=== PATIENT | male | born 1960 | race Caucasian/White ===

== ENCOUNTER 2020-06-05 10:59 | Inpatient (IN) | payer BC, MEDICARE ==
[~2020-06-05] VITALS: Ht 172.7 cm; Wt 113.4 kg
[~2020-06-05 10:59] MED LIST: ALBUTEROL0.63 MG/3 INH; ALDACTONE25 MG PO; ALDACTONE50 MG PO; ASMANEX INH; ASPIRIN 325MG325 MG PO; ASPIRIN EC325 MG PO; AVODART 0.5 MG0.5 MG PO; BACTRIM DS TAB1 EACH PO; BACTROBAN OINT22 GM EXT; BUMETANIDE2 MG PO; CARDIZEM CD180 MG PO; CELEXA40 MG PO; CITALOPRAM HBR40 MG PO; CLEOCIN 150MG150 MG PO; CLINDAMYCIN HC300 MG PO; DIAMOX 250 MG250 MG PO; DIFLUCAN200 MG PO; ELIQUIS 5 MG TAB5 MG PO; FERREX 150150 MG PO; FLOMAX 0.4 MG0.4 MG PO; FLOMAX0.4 MG PO; GLUCOPHAGE850 MG PO; GLUCOTROL XL 22.5 MG PO; GLUCOTROL5 MG PO; HYDRALAZINE HCL10 MG PO; HYDRALAZINE HCL50 MG PO; IMDUR ER TAB 6060 MG PO; IPRAT-ALBUT 0.5-3 ML INH; IPRAT-ALBUT 0.5-3 ML NEB; K-DUR TAB 20 M20 MEQ PO; LASIX 40 MG TAB40 MG PO; LASIX20 MG PO; LASIX40 MG PO; LEVAQUIN500 MG PO; LEVAQUIN750 MG PO; LISINOPRIL20 MG PO; MEDROL DOSEPAK 24 MG PO; NASONEX SPRAY 117 GM; NASONEX17 GM; NEXIUM40 MG PO; NITRO-TIME2.5 MG PO; NITROGLYCERIN0.4 MG SL; NITROGLYCERIN2.5 MG PO; NITROSTAT0.4 MG SL; NYSTATIN1000000 UN MC; PERCOCET 10-321 EACH PO; PERCOCET 5-3251 EACH PO; POTASSIUM CHLO20 ME2 PO; PREDNISONE10 MG PO; PRINIVIL20 MG PO; PULMICORT FLE180 MCG INH; PULMICORT FLEX90 MCG INH; RANITIDINE HCL150 MG PO; ROBITUSSIN AC480 ML PO; SALINE NOSE SPR45 ML; SEREVENT DISKU50 MCG INH; SINGULAIR10 MG PO; SPIRONOLACTONE25 MG PO; TRULICITY1.5 MG/0.5 SQ; VENTOLIN HFA 66.7 GM INH
[2020-06-05 11:40] LABS: HEMOGLOBIN 7.6 gm/dl (14.0-17.5); RED BLOOD COUNT 3.31 M/UL (4.20-5.50); WHITE BLOOD COUNT 13.5 K/UL (4.5-11.0)
[2020-06-05 12:36] LABS: BUN/CREATININE RATIO 18 (0-10)
[2020-06-05] MEDS ORDERED: ASPIRIN325 MG PO (17:36)
[2020-06-05] MEDS ORDERED: AVODART0.5 MG PO (17:39)
[2020-06-05] MEDS ORDERED: HYDRALAZINE HCL50 MG PO (17:40)
[2020-06-05] MEDS ORDERED: VENTOLIN HFA 66.7 GM INH (17:44)
[2020-06-05] MEDS ORDERED: IMDUR ER TAB 3030 MG PO (17:45)
[2020-06-05] MEDS ORDERED: ALBUTEROL0.63 MG/3 INH (17:45)
[2020-06-05] MEDS ORDERED: DIAMOX 250 MG250 MG PO (17:46)
[2020-06-05] MEDS ORDERED: CARDIZEM CD180 MG PO (17:46)
[2020-06-05] MEDS ORDERED: BUMETANIDE2 MG PO (17:47)
[2020-06-05] MEDS ORDERED: NEXIUM40 MG PO ×2 (17:48→17:49)
[2020-06-05] MEDS ORDERED: LISINOPRIL20 MG PO (17:49)
[2020-06-05] MEDS ORDERED: ALDACTONE25 MG PO (17:49)
[2020-06-05] MEDS ORDERED: CITALOPRAM HBR40 MG PO (17:50)
[2020-06-05] MEDS ORDERED: ELIQUIS5 MG PO (17:51)
[2020-06-05] MEDS ORDERED: NITROSTAT0.4 MG SL (17:51)
[2020-06-05] MEDS ORDERED: LASIX40 MG PO (17:51)
[2020-06-06 02:11] LABS: HEMOGLOBIN 7.3 gm/dl (14.0-17.5); RED BLOOD COUNT 3.16 M/UL (4.20-5.50); WHITE BLOOD COUNT 11.2 K/UL (4.5-11.0)
[2020-06-06 02:51] LABS: BUN/CREATININE RATIO 15 (0-10)
--- NOTE | 2020-06-06 16:31 | NUR ---
20g x 10cm midline placed in the left basilic vein. Aspirates and flushes well.
[2020-06-06 22:20] LABS: HEMOGLOBIN 9.2 gm/dl (14.0-17.5)
[2020-06-07 04:18] LABS: HEMOGLOBIN 8.8 gm/dl (14.0-17.5); WHITE BLOOD COUNT 11.2 K/UL (4.5-11.0)
[2020-06-07 04:19] LABS: RED BLOOD COUNT 3.66 M/UL (4.20-5.50)
[2020-06-08 06:35] LABS: RED BLOOD COUNT 3.84 M/UL (4.20-5.50); WHITE BLOOD COUNT 10.3 K/UL (4.5-11.0)
[2020-06-09 04:32] LABS: HEMOGLOBIN 8.7 gm/dl (14.0-17.5); RED BLOOD COUNT 3.62 M/UL (4.20-5.50); WHITE BLOOD COUNT 10.9 K/UL (4.5-11.0)
[2020-06-09] MEDS ORDERED: CLINDAMYCIN HC150 MG PO (10:12)
[2020-06-09] MEDS ORDERED: ALDACTONE25 MG PO (10:12)
[2020-06-09] MEDS ORDERED: NIFEREX 150 MG150 MG PO (10:12)
== END 2020-06-09 13:38 | disposition home or self-care (01) | DRG 291 ==
LOC: ER1 10:59 → MED SURG 4 14:37 → CDU 14:37 → MED SURG 4 16:01
PROVIDERS: Family Medicine; Physician Assistant; ADMIT Internal Medicine
PROC: 30233H1 Transfusion of Nonautologous Whole Blood into Peripheral Vein, Percutaneous Approach (ICD-10-PCS; principal; 2020-06-05)
PROC: 30233H1 Transfusion of Nonautologous Whole Blood into Peripheral Vein, Percutaneous Approach (ICD-10-PCS; 2020-06-06)
PROC: 5A09457 Assistance with Respiratory Ventilation, 24-96 Consecutive Hours, Continuous Positive Airway Pressure (ICD-10-PCS; 2020-06-07)
DX: I13.0 Hypertensive heart and chronic kidney disease with heart failure and stage 1 through stage 4 chronic kidney disease, or unspecified chronic kidney disease (principal); I50.43 Acute on chronic combined systolic (congestive) and diastolic (congestive) heart failure; J96.22 Acute and chronic respiratory failure with hypercapnia; J96.21 Acute and chronic respiratory failure with hypoxia; E66.2 Morbid (severe) obesity with alveolar hypoventilation; I48.20 Chronic atrial fibrillation, unspecified; L02.211 Cutaneous abscess of abdominal wall; K92.2 Gastrointestinal hemorrhage, unspecified; E11.22 Type 2 diabetes mellitus with diabetic chronic kidney disease; N18.30 Chronic kidney disease, stage 3 unspecified; D64.89 Other specified anemias; I27.20 Pulmonary hypertension, unspecified; I25.10 Atherosclerotic heart disease of native coronary artery without angina pectoris; E78.5 Hyperlipidemia, unspecified; Z79.01 Long term (current) use of anticoagulants; J44.9 Chronic obstructive pulmonary disease, unspecified; Z66 Do not resuscitate; I34.0 Nonrheumatic mitral (valve) insufficiency; Z98.61 Coronary angioplasty status; Z99.81 Dependence on supplemental oxygen; Z79.82 Long term (current) use of aspirin; Z79.899 Other long term (current) drug therapy; B95.62 Methicillin resistant Staphylococcus aureus infection as the cause of diseases classified elsewhere; D50.9 Iron deficiency anemia, unspecified; E65 Localized adiposity; Z20.822 Contact with and (suspected) exposure to COVID-19; Z68.38 Body mass index [BMI] 38.0-38.9, adult
CPT/HCPCS: ECHO; 36415; 36430; 36600; 71045; 80048; 80053; 82272; 82550; 82553; 82607; 82728; 82746; 82803; 82962; 83540; 83550; 83605; 83874; 83880; 84132; 84484; 85014; 85018; 85025; 85027; 86850; 86900; 86901; 86920; 93005; 93306; 94640; 94660; 94664; 94760; 96372; 96374; 96375; 99285; C1751; J1756; J1940; P9016; U0002

== ENCOUNTER → 2020-07-27 | Outpatient (CLI) | payer BC, MEDICARE ==
[~2020-07-27] MED LIST changes: +ASPIRIN325 MG PO; +AVODART0.5 MG PO; +CLINDAMYCIN HC150 MG PO; +COLACE100 MG PO; +ELIQUIS5 MG PO; +IMDUR ER TAB 3030 MG PO; +NIFEREX 150 MG150 MG PO; +NITROSTAT 0.40.4 MG SL; +OXYCODONE-ACET1 EACH PO; +SILDENAFIL20 MG PO
== END ==
LOC: LBRF 18:50
PROVIDERS: Internal Medicine
DX: I13.0 Hypertensive heart and chronic kidney disease with heart failure and stage 1 through stage 4 chronic kidney disease, or unspecified chronic kidney disease (principal); N18.30 Chronic kidney disease, stage 3 unspecified
CPT/HCPCS: 80048

== ENCOUNTER 2020-07-31 17:17 | Inpatient (IN) | payer BC, MEDICARE ==
[~2020-07-31] VITALS: Ht 172.7 cm; Wt 158.4 kg
[~2020-07-31 17:17] MED LIST changes: -COLACE100 MG PO; -NITROSTAT 0.40.4 MG SL; -OXYCODONE-ACET1 EACH PO; -SILDENAFIL20 MG PO
[2020-07-31 18:03] LABS: HEMOGLOBIN 7.6 gm/dl (14.0-17.5); RED BLOOD COUNT 3.21 M/UL (4.20-5.50); WHITE BLOOD COUNT 10.3 K/UL (4.5-11.0)
[2020-07-31 18:26] LABS: BUN/CREATININE RATIO 16 (0-10)
[2020-08-01 10:34] LABS: HEMOGLOBIN 7.4 gm/dl (14.0-17.5); RED BLOOD COUNT 3.15 M/UL (4.20-5.50); WHITE BLOOD COUNT 10.2 K/UL (4.5-11.0)
[2020-08-01] MEDS ORDERED: LASIX40 MG PO (13:06)
--- NOTE | 2020-08-01 17:25 | NUR ---
BLOOD TO BE GIVEN TO PT,1629 LAB CALLED AND LET NURSE KNOW THAT BLOOD WAS READY,PTS HERE PT WANTED TO WAIT UNTIL HIS Gave KIRBY A SHOWER, ONCE PT COMPLETED SHOWER WENT TO GET BLOOD CONSENT SIGNED AND PTS IV TO LEFT UPPER SHOULDER NO LONGER WORKING, PT A VERY HARD STICK STATES THAT HE WAS STUCK NUMEROUS TIMES BEFORE THEY GOT THAT ONE,NO RESOURCE NURSE TODAY, CALLED [employer] SHE STATED TO CALL [facility] SEE IF SOMEONE WAS AVAILABLE TO COME AND DO AN ULTRASOUND GUIDED IV, SPOKE WITH ROSAS AND SHE ASKED NURSES THAT WAS PRESENT AND NOONE WAS AVAILABLE
[2020-08-01] MEDS ORDERED: OXYCODONE-ACET1 EACH PO (17:42)
[2020-08-01] MEDS ORDERED: NASONEX SPRAY 117 GM (17:43)
[2020-08-01] MEDS ORDERED: TRULICITY1.5 MG/0.5 SQ (17:48)
[2020-08-02 04:44] LABS: HEMOGLOBIN 8.7 gm/dl (14.0-17.5); WHITE BLOOD COUNT 9.5 K/UL (4.5-11.0)
[2020-08-02 04:53] LABS: RED BLOOD COUNT 3.57 M/UL (4.20-5.50)
[2020-08-03 02:49] LABS: HEMOGLOBIN 8.6 gm/dl (14.0-17.5); RED BLOOD COUNT 3.53 M/UL (4.20-5.50)
[2020-08-04 03:57] LABS: HEMOGLOBIN 8.6 gm/dl (14.0-17.5); RED BLOOD COUNT 3.54 M/UL (4.20-5.50); WHITE BLOOD COUNT 9.1 K/UL (4.5-11.0)
[2020-08-05 03:54] LABS: HEMOGLOBIN 8.8 gm/dl (14.0-17.5); RED BLOOD COUNT 3.66 M/UL (4.20-5.50); WHITE BLOOD COUNT 9.2 K/UL (4.5-11.0)
[2020-08-06 05:12] LABS: HEMOGLOBIN 8.7 gm/dl (14.0-17.5); RED BLOOD COUNT 3.59 M/UL (4.20-5.50); WHITE BLOOD COUNT 9.3 K/UL (4.5-11.0)
[2020-08-08 03:13] LABS: HEMOGLOBIN 9.4 gm/dl (14.0-17.5); RED BLOOD COUNT 3.91 M/UL (4.20-5.50); WHITE BLOOD COUNT 9.4 K/UL (4.5-11.0)
[2020-08-09 02:48] LABS: HEMOGLOBIN 8.9 gm/dl (14.0-17.5); RED BLOOD COUNT 3.74 M/UL (4.20-5.50); WHITE BLOOD COUNT 8.4 K/UL (4.5-11.0)
[2020-08-09] MEDS ORDERED: SILDENAFIL20 MG PO (09:55)
--- NOTE | 2020-08-09 12:58 | NUR ---
INSTRUCTED DO NOT TAKE SILDENAFIL WITH NITRO OR IMDUR. VERBALIZED UNDERSTANDING. TROY CARRILLO R.N
== END 2020-08-09 18:19 | disposition home or self-care (01) | DRG 811 ==
LOC: ER1 17:17 → CDU 18:52 → M/S 19:59
PROVIDERS: Emergency Medicine; Internal Medicine Gastroenterology; Internal Medicine Infectious Disease; ADMIT Internal Medicine
PROC: 30233N1 Transfusion of Nonautologous Red Blood Cells into Peripheral Vein, Percutaneous Approach (ICD-10-PCS; 2020-08-01)
PROC: 0DB68ZX Excision of Stomach, Via Natural or Artificial Opening Endoscopic, Diagnostic (ICD-10-PCS; 2020-08-08)
PROC: 0DBK8ZZ Excision of Ascending Colon, Via Natural or Artificial Opening Endoscopic (ICD-10-PCS; principal; 2020-08-08 07:30)
PROC: 0DB98ZX Excision of Duodenum, Via Natural or Artificial Opening Endoscopic, Diagnostic (ICD-10-PCS; 2020-08-08 07:30)
DX: D50.9 Iron deficiency anemia, unspecified (principal); I50.33 Acute on chronic diastolic (congestive) heart failure; J96.21 Acute and chronic respiratory failure with hypoxia; J96.22 Acute and chronic respiratory failure with hypercapnia; K29.01 Acute gastritis with bleeding; I13.0 Hypertensive heart and chronic kidney disease with heart failure and stage 1 through stage 4 chronic kidney disease, or unspecified chronic kidney disease; I48.20 Chronic atrial fibrillation, unspecified; J44.9 Chronic obstructive pulmonary disease, unspecified; I25.10 Atherosclerotic heart disease of native coronary artery without angina pectoris; G47.33 Obstructive sleep apnea (adult) (pediatric); E66.01 Morbid (severe) obesity due to excess calories; E78.5 Hyperlipidemia, unspecified; I27.20 Pulmonary hypertension, unspecified; Z66 Do not resuscitate; E11.22 Type 2 diabetes mellitus with diabetic chronic kidney disease; E87.6 Hypokalemia; K64.8 Other hemorrhoids; N18.30 Chronic kidney disease, stage 3 unspecified; I48.91 Unspecified atrial fibrillation; K63.5 Polyp of colon; K57.30 Diverticulosis of large intestine without perforation or abscess without bleeding; Z79.82 Long term (current) use of aspirin; Z79.01 Long term (current) use of anticoagulants; Z79.899 Other long term (current) drug therapy
CPT/HCPCS: 36415; 36430; 71045; 80048; 80053; 82550; 82553; 82962; 83735; 83874; 83880; 84132; 84484; 85025; 85027; 86850; 86900; 86901; 86920; 87635; 93005; 94640; 94660; 94664; 94760; 96372; 96374; 96375; 99285; J1940; J2250; J2704; J3480; J7040; P9016; U0002

== ENCOUNTER 2020-10-11 21:55 | Inpatient (IN) | payer BC, MEDICARE ==
[~2020-10-11] VITALS: Ht 172.7 cm; Wt 172.9 kg
[~2020-10-11 21:55] MED LIST changes: +OXYCODONE-ACET1 EACH PO; +SILDENAFIL20 MG PO
[2020-10-11 23:15] LABS: RED BLOOD COUNT 2.41 M/UL (4.20-5.50); WHITE BLOOD COUNT 12.4 K/UL (4.5-11.0)
[2020-10-11 23:25] LABS: HEMOGLOBIN 4.6 gm/dl (14.0-17.5)
[2020-10-12] MEDS ORDERED: COLACE100 MG PO (07:16)
[2020-10-12] MEDS ORDERED: NITROSTAT 0.40.4 MG SL (07:21)
[2020-10-12] MEDS ORDERED: ASPIRIN EC325 MG PO (12:57)
[2020-10-12] MEDS ORDERED: SINGULAIR10 MG PO (17:41)
[2020-10-13 02:48] LABS: HEMOGLOBIN 7.8 gm/dl (14.0-17.5); WHITE BLOOD COUNT 9.9 K/UL (4.5-11.0)
[2020-10-13 02:50] LABS: RED BLOOD COUNT 3.44 M/UL (4.20-5.50)
--- NOTE | 2020-10-13 14:00 | NUR ---
NO CHANGE FROM PREVIOUS ASSESSMENT
[2020-10-14 02:33] LABS: HEMOGLOBIN 7.7 gm/dl (14.0-17.5); RED BLOOD COUNT 3.39 M/UL (4.20-5.50); WHITE BLOOD COUNT 11.8 K/UL (4.5-11.0)
[2020-10-15 02:22] LABS: HEMOGLOBIN 7.3 gm/dl (14.0-17.5); RED BLOOD COUNT 3.22 M/UL (4.20-5.50); WHITE BLOOD COUNT 10.4 K/UL (4.5-11.0)
[2020-10-16 05:47] LABS: RED BLOOD COUNT 3.47 M/UL (4.20-5.50); WHITE BLOOD COUNT 9.4 K/UL (4.5-11.0)
[2020-10-16 11:44] LABS: HEMOGLOBIN 8.4 gm/dl (14.0-17.5)
[2020-10-17 00:54] LABS: HEMOGLOBIN 8.4 gm/dl (14.0-17.5)
[2020-10-17 12:17] LABS: HEMOGLOBIN 8.2 gm/dl (14.0-17.5)
[2020-10-17 14:27] LABS: BUN/CREATININE RATIO 15 (0-10)
--- NOTE | 2020-10-17 16:20 | NUR ---
REPORT GIVEN TO SARA ON MED SURG 5
[2020-10-18 09:48] LABS: HEMOGLOBIN 8.4 gm/dl (14.0-17.5); RED BLOOD COUNT 3.64 M/UL (4.20-5.50)
[2020-10-18 09:52] LABS: WHITE BLOOD COUNT 13.3 K/UL (4.5-11.0)
[2020-10-18 10:20] LABS: BUN/CREATININE RATIO 15 (0-10)
--- NOTE | 2020-10-19 06:07 | NUR ---
I PLACED A BEDSIDE COMMODE AND URINAL IN THE PT'S ROOM. THE PT REFUSED TO USE THE URINAL AT FIRST AND WANTED TO WALK TO THE RESTROOM. WHEN PT AMBULATES OR EXERTS HIMSELF WITH ANY SORT OF ACTIVITY, PT BECOMES TACHYCARDIC (RATE 150'S-160'S) AND HIS O2 SATURATION DROPS (50'S-60'S). ONCE PT SITS DOWN AND IS PLACED ON HIS BIPAP, HIS O2 SATURATION SLOWLY RETURNS TO THE LOW 90'S AND HIS HEART RATE RETURNS TO BASELINE. I CALLED TO NOTIFY HER AND MAKE SURE SHE WAS AWARE OF WHAT WAS GOING ON WITH PT'S HEART RATE AND O2 SATURATION. STATED THAT SHE WOULD TALK TO CARDIO TODAY AND SEE IF THERE WERE ANY ADJUSTMENTS THAT COULD BE MADE TO HIS MEDICATIONS.
[2020-10-19 06:24] LABS: RED BLOOD COUNT 3.5 M/UL (4.20-5.50)
[2020-10-19 06:42] LABS: BUN/CREATININE RATIO 16 (0-10)
[2020-10-20 06:13] LABS: HEMOGLOBIN 9.8 gm/dl (14.0-17.5); RED BLOOD COUNT 4.06 M/UL (4.20-5.50); WHITE BLOOD COUNT 11.6 K/UL (4.5-11.0)
[2020-10-21 03:11] LABS: HEMOGLOBIN 9.5 gm/dl (14.0-17.5); RED BLOOD COUNT 3.94 M/UL (4.20-5.50); WHITE BLOOD COUNT 10.5 K/UL (4.5-11.0)
--- NOTE | 2020-10-21 19:28 | NUR ---
0815 Patient having trouble keeping O2 sats up. While asleep, sats drop into the 80's. Encouraged patient to wear Bipap. Spoke with Dr Stuart regarding 02 sats, she ordered a pulmonary consult. 0930 Patient ambulated to bathroom, 02 sats dropped into the 60's. Patient had no symptoms of being that low. Assisted patient to bed, applied bipap, 02 sats quickly went up into the 90's. 1000 Dr Stuart here, spoke with patient regarding code status, patient decided to change code status. Asked about goddard catheter for patient, she stated to do whatever patient wanted regarding catheter.
[2020-10-22 04:54] LABS: HEMOGLOBIN 9.3 gm/dl (14.0-17.5); RED BLOOD COUNT 3.94 M/UL (4.20-5.50); WHITE BLOOD COUNT 12.1 K/UL (4.5-11.0)
[2020-10-22 05:06] LABS: BUN/CREATININE RATIO 17 (0-10)
[2020-10-23 03:03] LABS: HEMOGLOBIN 9.1 gm/dl (14.0-17.5); RED BLOOD COUNT 3.82 M/UL (4.20-5.50); WHITE BLOOD COUNT 10.9 K/UL (4.5-11.0)
[2020-10-23 03:26] LABS: BUN/CREATININE RATIO 20 (0-10)
[2020-10-24 04:55] LABS: RED BLOOD COUNT 3.7 M/UL (4.20-5.50); WHITE BLOOD COUNT 8.7 K/UL (4.5-11.0)
[2020-10-24 05:24] LABS: BUN/CREATININE RATIO 20 (0-10)
[2020-10-29 15:05] LABS: HEMOGLOBIN 9.5 gm/dl (14.0-17.5); RED BLOOD COUNT 3.87 M/UL (4.20-5.50); WHITE BLOOD COUNT 9.2 K/UL (4.5-11.0)
[2020-10-29 15:26] LABS: BUN/CREATININE RATIO 16 (0-10)
[2020-10-30 03:35] LABS: RED BLOOD COUNT 3.69 M/UL (4.20-5.50); WHITE BLOOD COUNT 8.6 K/UL (4.5-11.0)
[2020-10-30 03:56] LABS: BUN/CREATININE RATIO 17 (0-10)
[2020-11-01 03:18] LABS: BUN/CREATININE RATIO 15 (0-10)
[2020-11-02 03:44] LABS: BUN/CREATININE RATIO 15 (0-10)
--- NOTE | 2020-11-02 14:59 | NUR ---
IV SITE LEFT PER ADMITTING FACILITY REQUEST
== END 2020-11-02 15:05 | disposition hospice, inpatient (51) | DRG 377 ==
LOC: ER1 21:55 → PROG CARE 10-12 01:46 → CDU 10-12 01:46 → PROG CARE 10-12 01:46 → M/S 10-14 13:33
PROVIDERS: Family Medicine; Hospitalist; Internal Medicine; Physician Assistant Medical; ADMIT Internal Medicine
PROC: 5A09557 Assistance with Respiratory Ventilation, Greater than 96 Consecutive Hours, Continuous Positive Airway Pressure (ICD-10-PCS; principal; 2020-10-14)
PROC: 30233N1 Transfusion of Nonautologous Red Blood Cells into Peripheral Vein, Percutaneous Approach (ICD-10-PCS; principal; 2020-10-14)
DX: K29.71 Gastritis, unspecified, with bleeding (principal); J96.21 Acute and chronic respiratory failure with hypoxia; I50.33 Acute on chronic diastolic (congestive) heart failure; J96.22 Acute and chronic respiratory failure with hypercapnia; E66.2 Morbid (severe) obesity with alveolar hypoventilation; D62 Acute posthemorrhagic anemia; E87.2 Acidosis; L02.211 Cutaneous abscess of abdominal wall; I13.0 Hypertensive heart and chronic kidney disease with heart failure and stage 1 through stage 4 chronic kidney disease, or unspecified chronic kidney disease; I48.21 Permanent atrial fibrillation; Z51.5 Encounter for palliative care; Z66 Do not resuscitate; I27.20 Pulmonary hypertension, unspecified; J45.50 Severe persistent asthma, uncomplicated; E78.5 Hyperlipidemia, unspecified; M50.30 Other cervical disc degeneration, unspecified cervical region; D63.8 Anemia in other chronic diseases classified elsewhere; Z96.641 Presence of right artificial hip joint; D50.9 Iron deficiency anemia, unspecified; G89.29 Other chronic pain; M54.9 Dorsalgia, unspecified; Z20.822 Contact with and (suspected) exposure to COVID-19; N18.30 Chronic kidney disease, stage 3 unspecified; E87.6 Hypokalemia; E11.22 Type 2 diabetes mellitus with diabetic chronic kidney disease; Z90.89 Acquired absence of other organs; Z83.3 Family history of diabetes mellitus; Z99.81 Dependence on supplemental oxygen; Z79.4 Long term (current) use of insulin; Z82.49 Family history of ischemic heart disease and other diseases of the circulatory system; Z80.9 Family history of malignant neoplasm, unspecified; Z72.0 Tobacco use; Z79.01 Long term (current) use of anticoagulants; Z83.6 Family history of other diseases of the respiratory system; Z79.2 Long term (current) use of antibiotics; Z79.82 Long term (current) use of aspirin; Z79.899 Other long term (current) drug therapy; Z68.33 Body mass index [BMI] 33.0-33.9, adult
CPT/HCPCS: 36415; 36430; 36600; 71045; 80048; 80053; 80162; 82550; 82553; 82728; 82803; 82962; 83540; 83550; 83735; 83874; 83880; 84132; 84439; 84443; 84484; 85014; 85018; 85025; 85027; 86140; 86850; 86900; 86901; 86920; 87040; 93005; 93308; 94640; 94660; 94664; 94760; 96374; 96375; 96376; 97110-GP-CQ; 97116; 97116-GP-CQ; 97162; 97165; 99285; G0378; J1160; J1756; J1940; J2270; J2405; J7050; P9016; U0002